=== PATIENT | male | born 1995 | race Two or more races ===

== ENCOUNTER 2017-11-06 20:39 | Emergency (ER) | payer OTHER ==
[~2017-11-06] VITALS: Ht 190.5 cm; Wt 127.0 kg
[2017-11-06 20:45] VITALS: BP 135/81
[2017-11-07] MEDS ORDERED: LIDOCAINE W/ EPINEPHRINE 2% INJ 20ML VIAL ONE
[2017-11-07] MEDS ORDERED: LIDOCAINE W/ EPINEPHRINE 1% 20ML VIAL SC ONE
[2017-11-07] MEDS ORDERED: cefTRIAXone SOD 1,000 MG VL IM ONE
[2017-11-07] MEDS ORDERED: LIDOCAINE 2% (LOCAL ANESTH.) PF 5ml SDV ONE (00:38)
== END 2017-11-07 00:18 | disposition home or self-care (01) ==
LOC: ER 20:39
DX: S51.812A Laceration without foreign body of left forearm, initial encounter (principal); W45.8XXA Other foreign body or object entering through skin, initial encounter; Y93.89 Activity, other specified; Y92.89 Other specified places as the place of occurrence of the external cause; Y99.8 Other external cause status
CPT/HCPCS: 12002; 96372; 99284; J0696; J2001